=== PATIENT | male | born 1955 | race Caucasian/White ===

== ENCOUNTER 2016-12-27 03:51 | Observation (INO) | payer BC ==
--- NOTE | 2016-12-27 03:57 | EDM.PDOC ---
ED HPI GENERAL MEDICAL PROBLEM - General Chief Complaint: Chest Pain Stated Complaint: CHEST PAIN Time Seen by Provider: 12/27/16 03:56 Source of Information: Reports: Patient History Limitations: Reports: No Limitations - History of Present Illness INITIAL COMMENTS - FREE TEXT/NARRATIVE: HISTORY AND PHYSICAL: History of present illness: [61-year-old male with a history of hypertension which she has never treated because he thought he lost weight and improved, now presents emergency department complaining of chest pain. Patient had a negative stress test 10 years ago but no cardiac workup since that time. He is never had high cholesterol or diabetes in June been a smoker. Patient has a family history of his brother having a stroke in his 50s but no family history of coronary artery disease specifically. Tonight patient experienced midsternal chest pain or pressure type with no nausea vomiting diaphoresis or shortness of air. No pleuritic pain. Pain is not worse with movement. Patient has no productive cough or fever Review of systems: As per history of present illness and below otherwise all systems reviewed and negative. Past medical history: As per history of present illness and as reviewed below otherwise noncontributory. Surgical history: As per history of present illness and as reviewed below otherwise noncontributory. Social history: No reported history of drug or alcohol abuse. Family history: As per history of present illness and as reviewed below otherwise noncontributory. Physical exam: HEENT: Atraumatic, normocephalic, pupils reactive, negative for conjunctival pallor or scleral icterus, mucous membranes moist, throat clear, neck supple, nontender, trachea midline. Lungs: Clear to auscultation, breath sounds equal bilaterally, chest nontender. Heart: S1S2, regular, negative for clicks, rubs, or JVD. Abdomen: Soft, nondistended, nontender. Negative for masses or hepatosplenomegaly. Negative for costovertebral tenderness. Pelvis: Stable nontender. Genitourinary: Deferred. Rectal: Deferred. Extremities: Atraumatic, negative for cords or calf pain. Neurovascular unremarkable. Neuro: Awake, alert, oriented. Cranial nerves grossly unremarkable. Cerebellum unremarkable. Motor and sensory unremarkable throughout. Exam nonfocal. Diagnostics: [Normal sinus rhythm at 56 mild bradycardia normal axis no STEMI Chest x-ray left lower lobe atelectasis, otherwise unremarkable interpreted by me] Therapeutics: [Aspirin given by mouth 324 mg] Impression: [Chest pain] Plan: [Signs and symptoms consistent with chest pain possible cardiac etiology in a patient with risk factors of male illness obesity uncontrolled hypertension chronically and family history of arterial disease EKG unremarkable workup in the emergency department reassuring. Discussed with patient recommend observation telemetry admission for further cardiac workup and treatment as needed. 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 Definitive disposition and diagnosis as appropriate pending reevaluation and review of above. Anterior Chest Pain Score (Numeric/FACES): 7 - Related Data Allergies Allergy/AdvReac Type Severity Reaction Status Date / Time No Known Allergies Allergy Verified 12/27/16 04:09 Home Meds: Home Meds . [No Known Home Meds] 12/27/16 [History] ED ROS GENERAL - Review of Systems Review Of Systems: See Below (History of present illness) ED EXAM, GENERAL - Physical Exam Exam: See Below (History of present illness) Course - Vital Signs Last Recorded V/S: Last Vital Signs Temp 36.4 C 12/27/16 06:20 Pulse 63 12/27/16 06:20 Resp 18 12/27/16 06:20 BP 134/73 12/27/16 06:20 Pulse Ox 92 L 12/27/16 06:20 - Orders/Labs/Meds Orders: Active Orders 24 hr Category Date Time Status Admission Status [Patient Status] [ADT] Routine ADT 12/27/16 06:06 Active Cardiac Monitoring [RC] . DIRECTED Care 12/27/16 03:58 Active EKG 12 Lead [EKG Documentation Completion] [RC] STAT Care 12/27/16 04:32 Active EKG Documentation Completion [RC] STAT Care 12/27/16 03:58 Active Oxygen Therapy [RC] ASDIRECTED Care 12/27/16 03:58 Active Pulse Oximetry [RC] ASDIRECTED Care 12/27/16 03:58 Active Telemetry Monitoring [Cardiac Monitoring] [RC] . Care 12/27/16 06:10 Active DIRECTED Heart Healthy Diet [DIET] Diet 12/27/16 Lunch Active Ang Abdomen [CT] Stat Exams 12/27/16 04:40 Ordered Ang Chest [CT] Stat Exams 12/27/16 04:40 Ordered Chest 1V Frontal [CR] Stat Exams 12/27/16 03:58 Taken TROPONIN I [CHEM] Q6H Lab 12/27/16 09:55 Ordered TROPONIN I [CHEM] Q6H Lab 12/27/16 15:55 Ordered Sodium Chloride 0.9% [Normal Saline] 1,000 ml Med 12/27/16 04:30 Active IV ASDIRECTED Medication Orders Sodium Chloride (Normal Saline) 1,000 mls @ 999 mls/hr IV ASDIRECTED GAEL Last Admin: 12/27/16 04:29 Dose: 999 mls/hr Labs: Laboratory Tests 12/27/16 12/27/16 12/27/16 Range/Units 03:55 03:55 03:55 WBC 10.45 (4.0-11.0) K/uL RBC 5.03 (4.50-5.90) M/uL Hgb 15.2 (13.0-17.0) g/dL Hct 45.5 (38.0-50.0) % MCV 90.5 (80.0-98.0) fL MCH 30.2 (27.0-32.0) pg MCHC 33.4 (31.0-37.0) g/dL RDW Std Deviation 47.2 (28.0-62.0) fl RDW Coeff of Amy 14 (11.0-15.0) % Plt Count 278 (150-400) K/uL MPV 9.90 (7.40-12.00) fL Neut % (Auto) 56.9 (48.0-80.0) % Lymph % (Auto) 24.7 (16.0-40.0) % [place] % (Auto) 11.3 (0.0-15.0) % Eos % (Auto) 6.0 (0.0-7.0) % Baso % (Auto) 1.1 (0.0-1.5) % Neut # (Auto) 6.0 H (1.4-5.7) K/uL Lymph # (Auto) 2.6 H (0.6-2.4) K/uL Radford # (Auto) 1.2 H (0.0-0.8) K/uL Eos # (Auto) 0.6 (0.0-0.7) K/uL Baso # (Auto) 0.1 (0.0-0.1) K/uL Nucleated RBC % 0.0 /100WBC Nucleated RBCs # 0 K/uL Sodium 141 (136-146) mmol/L Potassium 3.9 (3.5-5.1) mmol/L Chloride 109 (98-110) mmol/L Carbon Dioxide 24 (21-31) mmol/L BUN 20 (6.0-23.0) mg/dL Creatinine 0.9 (0.6-1.5) mg/dL Est Cr Clr Drug Dosing 88.38 mL/min Estimated GFR (MDRD) > 60.0 ml/min Glucose 109 (60-110) mg/dL Calcium 9.3 (8.8-10.8) mg/dL Total Bilirubin 0.3 (0.1-1.5) mg/dL AST 16 (5-40) IU/L ALT 17 (8-54) IU/L Alkaline Phosphatase 72 (40-150) Troponin I < 0.10 (0.0-0.29) NG/ML Total Protein 6.8 (6.0-8.0) g/dL Albumin 4.2 (3.5-5.0) g/dL Globulin 2.6 (2.0-3.5) g/dL Albumin/Globulin Ratio 1.6 (1.3-2.8) Meds: Medications Generic Name Dose Route Start Last Admin Trade Name Clinton PRN Reason Stop Dose Admin Sodium Chloride 1,000 mls @ 999 mls/hr 12/27/16 04:30 12/27/16 04:29 Normal Saline IV 999 mls/hr ASDIRECTED GAEL Administration Discontinued Medications Generic Name Dose Route Start Last Admin Trade Name Clinton PRN Reason Stop Dose Admin Aspirin 324 mg 12/27/16 03:58 12/27/16 04:06 Aspirin PO 12/27/16 03:59 324 mg ONETIME ONE Administration Al Hydroxide/Mg Hydroxide 15 0 ml 12/27/16 04:35 12/27/16 04:46 ml/ Metoclopramide HCl 5 mg/ PO 12/27/16 04:36 1 each Lidocaine HCl 5 ml ONETIME ONE Administration Hydromorphone HCl 0.5 mg 12/27/16 05:05 12/27/16 05:09 Dilaudid IVPUSH 12/27/16 05:06 0.5 mg ONETIME ONE Administration Hydromorphone HCl Confirm 12/27/16 05:05 12/27/16 05:31 Dilaudid Administered 12/27/16 05:06 Not Given Dose 1 mg .ROUTE .STK-MED ONE Hydromorphone HCl Confirm 12/27/16 05:33 12/27/16 06:11 Dilaudid Administered 12/27/16 05:34 Not Given Dose 1 mg .ROUTE .STK-MED ONE Iopamidol 100 ml 12/27/16 05:25 12/27/16 05:26 Isovue Multipack-370 (76%) IVPUSH 12/27/16 05:26 100 ml ONETIME STA Administration Lorazepam 1 mg 12/27/16 05:05 12/27/16 05:11 Ativan IVPUSH 12/27/16 05:06 1 mg ONETIME ONE Administration Lorazepam Confirm 12/27/16 05:06 12/27/16 05:31 Ativan Administered 12/27/16 05:07 Not Given Dose 2 mg .ROUTE .STK-MED ONE Omeprazole 20 mg 12/27/16 04:34 12/27/16 04:46 Omeprazole PO 12/27/16 04:35 20 mg ONETIME ONE Administration Ondansetron HCl 4 mg 12/27/16 04:26 12/27/16 04:30 Zofran IVPUSH 12/27/16 04:27 4 mg ONETIME ONE Administration Departure - Departure Time of Disposition: 06:00 Disposition: Refer to Observation Condition: good Clinical Impression: Chest pain - My Orders Last 24 Hours: My Active Orders 12/27/16 03:58 Cardiac Monitoring [RC] . DIRECTED EKG Documentation Completion [RC] STAT Oxygen Therapy [RC] ASDIRECTED Pulse Oximetry [RC] ASDIRECTED Chest 1V Frontal [CR] Stat 12/27/16 04:30 Sodium Chloride 0.9% [Normal Saline] 1,000 ml IV ASDIRECTED 12/27/16 04:32 EKG 12 Lead [EKG Documentation Completion] [RC] STAT 12/27/16 04:40 Ang Abdomen [CT] Stat Ang Chest [CT] Stat - Assessment/Plan Last 24 Hours: My Active Orders 12/27/16 03:58 Cardiac Monitoring [RC] . DIRECTED EKG Documentation Completion [RC] STAT Oxygen Therapy [RC] ASDIRECTED Pulse Oximetry [RC] ASDIRECTED Chest 1V Frontal [CR] Stat 12/27/16 04:30 Sodium Chloride 0.9% [Normal Saline] 1,000 ml IV ASDIRECTED 12/27/16 04:32 EKG 12 Lead [EKG Documentation Completion] [RC] STAT 12/27/16 04:40 Ang Abdomen [CT] Stat Ang Chest [CT] Stat
[2016-12-27] MEDS ORDERED: Aspirin 81 MG Tab.Chew PO ONE (03:58)
[2016-12-27 04:25] LABS: CHLORIDE,CL 109 mmol/L (98-110); SODIUM,NA 141 mmol/L (136-146)
[2016-12-27] MEDS ORDERED: Ondansetron 4 MG/2 ML SDV IVPUSH ONE (04:26)
[2016-12-27] MEDS ORDERED: Sodium Chloride 0.9% 1,000 ML IV SCH (04:30)
[2016-12-27] MEDS ORDERED: Omeprazole 20 MG Cap.CR PO ONE (04:34)
[2016-12-27] MEDS ORDERED: Alum Hydrox/Mag Hydrox/Simeth 15 ML, Metoclopramide 5 MG, Lidocaine 2% 5 ML PO ONE ×3 (04:35)
[2016-12-27] MEDS ORDERED: HYDROmorphone 1 MG/ML Syringe ONE ×2 (05:05→05:33)
[2016-12-27] MEDS ORDERED: HYDROmorphone 1 MG/ML Syringe IVPUSH ONE (05:05)
[2016-12-27] MEDS ORDERED: LORazepam 2 MG/ML MDV IVPUSH ONE (05:05)
[2016-12-27] MEDS ORDERED: LORazepam 2 MG/ML MDV ONE (05:06)
[2016-12-27] MEDS ORDERED: Iopamidol 755 MG/ML 500 ML Multipack Bottle IVPUSH STA (05:25)
[2016-12-27] MEDS ORDERED: Acetaminophen 325 MG Tab PO ONE ×2 (10:46→13:44)
--- NOTE | 2016-12-27 11:13 | PCM.HP ---
H&P History of Present Illness - General Admit Problem/Dx: Admission Diagnosis/Problem Admission Diagnosis/Problem Chest pain - History of Present Illness Initial Comments - Free Text/Narative: 61 yo male who presents to the ED with chest pain. Patient reported eating pizza late last night. Afterwords he developed substernal chest pressure which was more intense than any heart burn he has had in the past. He denies any shortness of breath, cough or lightheadedness. He was evaluated in the ED with negative EKG, cardiac enyzmes and normal CT angio. He was given dilaudid and ativan with resolution of his chest pain. His blood pressure was elevated on admission with BP of 180/109 but now on the medical floor it is 121/73. Anterior Chest Pain Score (Numeric/FACES): 7 - Related Data Allergies/Adverse Reactions: Allergies Allergy/AdvReac Type Severity Reaction Status Date / Time No Known Allergies Allergy Verified 12/27/16 04:09 Home Medications: Home Meds . [No Known Home Meds] 12/27/16 [History] Past Medical History HEENT History: Reports: Cataract Cardiovascular History: Reports: Hypertension Respiratory History: Reports: Asthma Gastrointestinal History: Reports: None Genitourinary History: Reports: None Musculoskeletal History: Reports: None Neurological History: Reports: None Psychiatric History: Reports: None Endocrine/Metabolic History: Reports: None Hematologic History: Reports: None Immunologic History: Reports: None Oncologic (Cancer) History: Reports: None Dermatologic History: Reports: None - Infectious Disease History Infectious Disease History: Reports: None - Past Surgical History Head Surgeries/Procedures: Reports: None HEENT Surgical History: Reports: None Cardiovascular Surgical History: Reports: None GI Surgical History: Reports: None Male Surgical History: Reports: None Social & Family History - Family History Neurological: Reports: CVA - Tobacco Use Smoking Status *Q: Never Smoker Second Hand Smoke Exposure: No - Caffeine Use Caffeine Use: Reports: Coffee, Soda - Alcohol Use Days Per Week of Alcohol Use: 1 Number of Drinks Per Day: 1 Total Drinks Per Week: 1 - Recreational Drug Use Recreational Drug Use: No H&P Review of Systems - Review of Systems: Review Of Systems: See Below General: Reports: No Symptoms HEENT: Reports: No Symptoms Pulmonary: Reports: No Symptoms Cardiovascular: Reports: No Symptoms Gastrointestinal: Reports: No Symptoms Genitourinary: Reports: No Symptoms Musculoskeletal: Reports: No Symptoms Skin: Reports: No Symptoms Psychiatric: Reports: No Symptoms Neurological: Reports: No Symptoms Hematologic/Lymphatic: Reports: No Symptoms Immunologic: Reports: No Symptoms Exam - Exam Exam: See Below - Vital Signs Vital Signs: Last Vital Signs Temp 36.2 C 12/27/16 08:00 Pulse 54 L 12/27/16 08:00 Resp 22 H 12/27/16 08:00 BP 121/73 12/27/16 08:00 Pulse Ox 97 12/27/16 08:00 Weight: 102.4 kg - Exam General: Alert, Oriented, 4 Lungs: Clear to Auscultation, Normal Respiratory Effort Cardiovascular: Regular Rate, Regular Rhythm Extremities: 3, Normal Inspection, 10 Skin: Warm, Dry, Intact Neurological: Normal Speech, Normal Tone. No: Focal Deficit - Patient Data Lab Results last 24 hrs: Laboratory Results - last 24 hr 12/27/16 Range/Units 08:59 Troponin I < 0.10 (0.0-0.29) NG/ML Result Diagrams: 12/27/16 03:55 12/27/16 03:55 *Q Meaningful Use (ADM) - VTE *Q VTE Criteria *Q: - Stroke *Q Stroke Criteria *Q: - AMI *Q AMI Criteria *Q: Problem List Initiated/Reviewed/Updated: Yes Orders Last 24hrs: Active Orders 24 hr Category Date Time Status Admission Status [Patient Status] [ADT] Routine ADT 12/27/16 06:06 Active Telemetry Monitoring [Cardiac Monitoring] [RC] . Care 12/27/16 06:10 Active DIRECTED Heart Healthy Diet [DIET] Diet 12/27/16 Lunch Active TROPONIN I [CHEM] Q6H Lab 12/27/16 15:55 Ordered Medication Orders Sodium Chloride (Normal Saline) 1,000 mls @ 999 mls/hr IV ASDIRECTED GAEL Last Admin: 12/27/16 04:29 Dose: 999 mls/hr Assessment/Plan Comment:: 61 yo male who presented with chest pain. His serial cardiac enzymes are negative and he has had no events on telemetry. Patient was discharged home. He was instructed to follow up with his PCP in [place] regarding additional cardiac stress testing.
[2016-12-27] MEDS ORDERED: Ondansetron 4 MG/2 ML SDV IVPUSH PRN (14:07)
[2016-12-27 16:02] VITALS: BP 154/84
[2016-12-27] MEDS ORDERED: Morphine 2 MG/ML Syringe IVPUSH ONE (17:16)
--- NOTE | 2016-12-28 11:09 | CR ---
EXAM DATE: 12/27/16 PATIENT'S AGE: 61 Patient: MITALI CHOWDHURY Facility: [place], [place] Site . Site : 1955 Study: XRay Chest [id number]/11/2017 4:21:22 AM Ordering Physician: Doctor Agarwal Final Report: INDICATION: Chest pain. TECHNIQUE: Chest radiograph 1 view COMPARISON: None FINDINGS: Cardiovascular and mediastinum: The heart silhouette is normal in size and morphology. The mediastinum is normal in appearance. Lungs and pleural spaces: Both lungs are unremarkable in appearance. No sign of pleural effusion seen. No pneumothorax is identified. Bones and soft tissues: No significant findings. IMPRESSION: 1. No acute cardiopulmonary disease is seen. Dictated by Jose E Rayo MD @ 12/27/2016 4:29:59 AM Dictated by: Jose E Rayo MD @ 12/27/2016 04:30:02 (Electronic Signature) Report Signed by Proxy. [facility]
--- NOTE | 2016-12-28 11:10 | CT ---
EXAM DATE: 12/27/16 PATIENT'S AGE: 61 Patient: MITALI CHOWDHURY Facility: [place], [place] Site . Site : 1955 Study: CT Chest Angio ABDOMEN [id number]/11/2017 5:36:00 AM Ordering Physician: Jerald Reeys Final Report: INDICATION: Chest pain, history of hypertension. TECHNIQUE: CT chest without contrast and CT chest, abdomen and pelvis acquired with IV contrast, dissection protocol. COMPARISON: None. FINDINGS: Aorta: The unenhanced images demonstrate no evidence of aortic intramural hematoma. The entire aorta is normal in caliber and there is no sign of aortic dissection Main pulmonary artery normal in caliber. No large, central pulmonary artery filling defects. Chest: Heart: Heart size normal. No pericardial effusion. Mediastinum and dmitriy: No mass or adenopathy. Lungs: Clear. Pleura and pericardium: No pleural effusions or pneumothorax. Chest wall and axilla: No mass or adenopathy. Abdomen and Pelvis: Liver: Unremarkable. Spleen: Unremarkable. Pancreas: Unremarkable. Gallbladder and bile ducts: Unremarkable. Adrenal glands: Unremarkable. Kidneys: Symmetric renal enhancement. No hydronephrosis. Simple right renal cysts. No perinephric fat stranding. GI tract: No hiatal hernia. Medial duodenal diverticulum. Loops of small bowel are normal in caliber. Normal appendix. Lymph nodes: Unremarkable. Miscellaneous: Unremarkable. No free air or significant free fluid. Bones: Unremarkable for age. IMPRESSION: 1. No evidence of thoracic or abdominal aortic aneurysm or dissection. 2. Lungs clear. 3. Duodenal diverticulum. 4. Normal appendix. Dictated by Jose E Rayo MD @ 12/27/2016 5:46:33 AM Dictated by: Jose E Rayo MD @ 12/27/2016 05:46:39 (Electronic Signature) Report Signed by Proxy. [facility]ITAL[facility]essica
--- NOTE | 2016-12-28 11:11 | CT ---
EXAM DATE: 12/27/16 PATIENT'S AGE: 61 Patient: MITALI CHOWDHURY Facility: [place], [place] Site . Site : 1955 Study: CT Chest Angio ABDOMEN [id number]/11/2017 5:36:00 AM Ordering Physician: Jerald Reyes Final Report: INDICATION: Chest pain, history of hypertension. TECHNIQUE: CT chest without contrast and CT chest, abdomen and pelvis acquired with IV contrast, dissection protocol. COMPARISON: None. FINDINGS: Aorta: The unenhanced images demonstrate no evidence of aortic intramural hematoma. The entire aorta is normal in caliber and there is no sign of aortic dissection Main pulmonary artery normal in caliber. No large, central pulmonary artery filling defects. Chest: Heart: Heart size normal. No pericardial effusion. Mediastinum and dmitriy: No mass or adenopathy. Lungs: Clear. Pleura and pericardium: No pleural effusions or pneumothorax. Chest wall and axilla: No mass or adenopathy. Abdomen and Pelvis: Liver: Unremarkable. Spleen: Unremarkable. Pancreas: Unremarkable. Gallbladder and bile ducts: Unremarkable. Adrenal glands: Unremarkable. Kidneys: Symmetric renal enhancement. No hydronephrosis. Simple right renal cysts. No perinephric fat stranding. GI tract: No hiatal hernia. Medial duodenal diverticulum. Loops of small bowel are normal in caliber. Normal appendix. Lymph nodes: Unremarkable. Miscellaneous: Unremarkable. No free air or significant free fluid. Bones: Unremarkable for age. IMPRESSION: 1. No evidence of thoracic or abdominal aortic aneurysm or dissection. 2. Lungs clear. 3. Duodenal diverticulum. 4. Normal appendix. Dictated by Jose E Rayo MD @ 12/27/2016 5:46:33 AM Dictated by: Jose E Rayo MD @ 12/27/2016 05:46:39 (Electronic Signature) Report Signed by Proxy. [facility]NERS[facility]essica
== END 2016-12-27 19:45 | disposition home or self-care (01) ==
LOC: MW.ED 03:51 → MW.MS 06:04
PROVIDERS: ADMIT Internal Medicine; ATTEND Internal Medicine
DX: R07.2 Precordial pain (principal); H26.9 Unspecified cataract; I10 Essential (primary) hypertension; J45.909 Unspecified asthma, uncomplicated; K57.10 Diverticulosis of small intestine without perforation or abscess without bleeding; Z82.3 Family history of stroke
CPT/HCPCS: 71010; 71275; 74175; 80053; 84484; 85025; 93005; 96361; 96374; 96375; 96376; 99285; A9270; G0378; J1170; J2060; J2405; J7040; Q9967